=== PATIENT | male | born 1940 | race Caucasian/White ===

== ENCOUNTER → 2017-01-02 | Outpatient (CLI) | payer MEDICARE, OTHER ==
[~2017-01-02] MED LIST: DRON400T PO; FENO160T8 PO; FURO40TA OR; INSULIN LANTUS SUBCUT; MEGE40TA15 PO; METO5TAB56 PO; NOR10T PO; POTA8TAB2 OR; RAMI2.5C33 PO; SITA100T7 PO; [UNRECOGNIZED DRUG - OTHER] SUBCUT
[2017-01-02 16:32] LABS: Basophils # (auto) 0 uL; Basophils % (auto) 0.3 % (0.0-2.0); CONDITION Y; Eosinophils # (auto) 0.2 uL; Eosinophils % (auto) 1.5 % (0.0-7.0); Hematocrit 37.2 % (41.0-53.0); Hemoglobin 12.6 g/dL (13.5-17.5); Lymphocytes # (auto) 2.4 uL; Lymphocytes % (auto) 18.9 % (10.0-50.0); Mean Corpuscular Hemoglobin 30.6 pg (28.0-32.0); Mean Corpuscular Volume 90.1 fL (80.0-100.0); Mean Platelet Volume 8.8 fL (7.4-10.4); Monocytes # (auto) 0.6 uL; Monocytes % (auto) 4.8 % (0.0-12.0); Neutrophils # (auto) 9.3 uL; Neutrophils % (auto) 74.5 % (37.0-80.0); Platelet Count (auto) 265 10^3/uL (140-450); Red Cell Distribution Width 14.5 % (11.6-16.0); White Blood Cell 12.5 10^3/uL (4.4-10.8)
[2017-01-02 17:10] LABS: BUN/Creatinine Ratio 18.2; Calcium 9.2 mg/dL (8.5-10.1); Potassium 4.3 mmol/L (3.5-5.1)
== END | disposition home or self-care (01) ==
LOC: Rad HDHVI 14:49
PROVIDERS: ATTEND Internal Medicine Cardiovascular Disease
DX: I25.5 Ischemic cardiomyopathy (principal); D64.9 Anemia, unspecified; I10 Essential (primary) hypertension; E11.9 Type 2 diabetes mellitus without complications; I73.9 Peripheral vascular disease, unspecified
CPT/HCPCS: 36415; 80048; 83036; 85025; 93306

== ENCOUNTER → 2017-02-04 | Outpatient (CLI) | payer MEDICARE, OTHER ==
[~2017-02-04] VITALS: Ht 182.9 cm; Wt 86.2 kg
[~2017-02-04] MED LIST changes: +ATEN-60 PO; +ATO40T PO; +DEXL60CA3 PO; +DIGO0.1262 PO; +FURO40TA4 PO; +ISOS30TA4 PO; +LEVO100T8 PO; +LINA5TAB PO; +ONDA4TAB5 PO; +PIOG15TA46 PO; +POTA10TA51 PO; +SUCR1TAB PO; +TORS20TA20 PO
[2017-02-04 09:15] VITALS: BP 175/81
[2017-02-04 10:03] VITALS: BP 149/92
[2017-02-04 12:21] LABS: Basophils # (auto) 0 uL; Basophils % (auto) 0.3 % (0.0-2.0); CONDITION Y; Eosinophils # (auto) 0.3 uL; Eosinophils % (auto) 2.9 % (0.0-7.0); Hematocrit 38.8 % (41.0-53.0); Hemoglobin 13.1 g/dL (13.5-17.5); Lymphocytes % (auto) 22.3 % (10.0-50.0); Mean Corpuscular Hemoglobin 30.6 pg (28.0-32.0); Mean Corpuscular Hgb Conc. 33.9 g/dL (32.0-36.0); Mean Corpuscular Volume 90.2 fL (80.0-100.0); Mean Platelet Volume 8.2 fL (7.4-10.4); Monocytes # (auto) 0.5 uL; Monocytes % (auto) 5.5 % (0.0-12.0); Neutrophils # (auto) 6.2 uL; Platelet Count (auto) 300 10^3/uL (140-450); Red Cell Distribution Width 14.7 % (11.6-16.0); White Blood Cell 9.1 10^3/uL (4.4-10.8)
[2017-02-04 12:34] LABS: INR 0.95 (0.9-1.15); Partial Thromboplastin Time 26.8 sec (22.64-33.71); Prothrombin Time 10.3 sec (9.37-12.3)
[2017-02-04 12:54] LABS: BUN/Creatinine Ratio 18.6; Calcium 9.2 mg/dL (8.5-10.1); Potassium 4.5 mmol/L (3.5-5.1)
== END | disposition home or self-care (01) ==
LOC: CHF HDHVI 09:05
PROVIDERS: ATTEND Internal Medicine Cardiovascular Disease
DX: Z01.818 Encounter for other preprocedural examination (principal); I25.5 Ischemic cardiomyopathy; I25.10 Atherosclerotic heart disease of native coronary artery without angina pectoris; I10 Essential (primary) hypertension; R79.1 Abnormal coagulation profile; D64.9 Anemia, unspecified
CPT/HCPCS: 36415; 80048; 85025; 85610; 85730; 93005; G0463

== ENCOUNTER 2017-02-14 07:47 | Day surgery (SDC) | payer MEDICARE, OTHER ==
[~2017-02-14 07:47] MED LIST changes: -DRON400T PO; -FENO160T8 PO; -FURO40TA OR; -INSULIN LANTUS SUBCUT; -METO5TAB56 PO; -NOR10T PO; -PIOG15TA46 PO; -POTA8TAB2 OR; -RAMI2.5C33 PO; -SITA100T7 PO; -TORS20TA20 PO; -[UNRECOGNIZED DRUG - OTHER] SUBCUT
[2017-02-14] MEDS ORDERED: IOHEXOL 350 MG/ML 100ML IJ ONE (09:32)
[2017-02-14] MEDS ORDERED: LIDOCAINE 2%HCL (LOCAL ANESTH.) INJ 20ML MDV ONE ×2 (09:32→13:25)
[2017-02-14] MEDS ORDERED: ANGIOMAX 250 MG VIAL IV ONE (13:16)
[2017-02-14] MEDS ORDERED: SODIUM CHL 0.9% 0 ML ONE (13:17)
[2017-02-14] MEDS ORDERED: MIDAZOLAM HCL 1MG/1ML-2 ML VIAL ONE (13:17)
[2017-02-14] MEDS ORDERED: fentaNYL CITRATE 100 MCG/2 ML VL ONE (13:17)
[2017-02-14] MEDS ORDERED: SODIUM CHLORIDE 0.9% 1,000 ML IV SCH (14:01)
[2017-02-14] MEDS ORDERED: ACETAMINOPHEN 500 MG TAB PO PRN (14:15)
[2017-02-14] MEDS ORDERED: HYDROcodone-ACET 5/325MG TAB PO PRN (14:15)
== END 2017-02-14 16:10 | disposition home or self-care (01) ==
LOC: CATH 07:47
PROVIDERS: ATTEND Internal Medicine Cardiovascular Disease
DX: I25.10 Atherosclerotic heart disease of native coronary artery without angina pectoris (principal); I10 Essential (primary) hypertension; E78.5 Hyperlipidemia, unspecified; Z95.1 Presence of aortocoronary bypass graft; E11.9 Type 2 diabetes mellitus without complications; I50.9 Heart failure, unspecified; F41.9 Anxiety disorder, unspecified; F32.9 Major depressive disorder, single episode, unspecified; Z87.891 Personal history of nicotine dependence
CPT/HCPCS: 93458; C1760; C1894; J1644; J2250; J3010; J7030; Q9967

== ENCOUNTER → 2017-07-25 | Outpatient (CLI) | payer MEDICARE, OTHER ==
[~2017-07-25] VITALS: Ht 182.9 cm; Wt 86.2 kg
[~2017-07-25] MED LIST changes: +ADENOSINE 72 MG in GIVE UN-DILUTED 0 ML IV ONE; +ADENOSINE 90 MG/30 ML INJ IV ONE; +GABA100C9 PO; +INSDRIP SC; +INSLANTI SC; +METO25TA62 PO; +TORS5TAB8 PO
== END | disposition home or self-care (01) ==
LOC: Rad HDHVI 09:59
PROVIDERS: ATTEND Internal Medicine Cardiovascular Disease
DX: I11.0 Hypertensive heart disease with heart failure (principal); I50.23 Acute on chronic systolic (congestive) heart failure; I25.5 Ischemic cardiomyopathy; E83.52 Hypercalcemia; E11.9 Type 2 diabetes mellitus without complications; R19.7 Diarrhea, unspecified
CPT/HCPCS: 78452; 93005; 96374; 96375; A9500; J0153

== ENCOUNTER → 2017-08-28 | Outpatient (CLI) | payer MEDICARE, OTHER ==
[~2017-08-28] MED LIST changes: -ADENOSINE 72 MG in GIVE UN-DILUTED 0 ML IV ONE; -ADENOSINE 90 MG/30 ML INJ IV ONE
== END | disposition home or self-care (01) ==
LOC: Rad HDHVI 10:50
PROVIDERS: ATTEND Internal Medicine Cardiovascular Disease
DX: I07.1 Rheumatic tricuspid insufficiency (principal); E11.40 Type 2 diabetes mellitus with diabetic neuropathy, unspecified; I10 Essential (primary) hypertension; I70.201 Unspecified atherosclerosis of native arteries of extremities, right leg; E78.5 Hyperlipidemia, unspecified; Z95.1 Presence of aortocoronary bypass graft; Z89.512 Acquired absence of left leg below knee
CPT/HCPCS: 93306; 93926

== ENCOUNTER → 2017-09-24 | Outpatient (CLI) | payer MEDICARE, OTHER ==
[~2017-09-24] MED LIST changes: +CLOPIDOGREL 300 MG TAB ONE; +IODIXANOL 320MG/ML 100ML BTL IV ONE; +LIDOCAINE HCL 2 %PF INJ 10ML AMP IJ ONE; +SODIUM CHL 0.9% 50 ML ONE
[2017-09-24 09:10] VITALS: BP 155/46
[2017-09-24 09:44] VITALS: BP 143/51
[2017-09-24 11:55] LABS: Basophils # (auto) 0.1 uL; Basophils % (auto) 0.8 % (0.0-2.0); Eosinophils # (auto) 0.6 uL; Eosinophils % (auto) 6.8 % (0.0-7.0); Hematocrit 31.1 % (41.0-53.0); Hemoglobin 10.6 g/dL (13.5-17.5); Lymphocytes # (auto) 1.7 uL; Mean Corpuscular Hgb Conc. 34.2 g/dL (32.0-36.0); Mean Corpuscular Volume 87.5 fL (80.0-100.0); Monocytes # (auto) 0.6 uL; Monocytes % (auto) 7.3 % (0.0-12.0); Neutrophils # (auto) 5.6 uL; Neutrophils % (auto) 65.1 % (37.0-80.0); Nucleated Red Blood Cells % 0.1 %; Platelet Count (auto) 261 10^3/uL (140-450); Red Blood Cells 3.55 10^6/uL (4.5-5.90); Red Cell Distribution Width 15.6 % (11.8-14.3); White Blood Cell 8.7 10^3/uL (4.4-10.8)
[2017-09-24 12:01] LABS: INR 0.97 (0.9-1.15); Partial Thromboplastin Time 26.5 sec (22.64-33.71); Prothrombin Time 10.6 sec (9.37-12.3)
[2017-09-24 12:19] LABS: BUN/Creatinine Ratio 13.6; Calcium 8.3 mg/dL (8.5-10.1); Potassium 3.9 mmol/L (3.5-5.1)
== END | disposition home or self-care (01) ==
LOC: Rad HDHVI 09:00
PROVIDERS: ATTEND Internal Medicine Cardiovascular Disease
DX: Z01.818 Encounter for other preprocedural examination (principal); I70.0 Atherosclerosis of aorta; I10 Essential (primary) hypertension; D64.9 Anemia, unspecified; R79.1 Abnormal coagulation profile; E78.5 Hyperlipidemia, unspecified; Z95.5 Presence of coronary angioplasty implant and graft
CPT/HCPCS: 36415; 71046; 80048; 85025; 85610; 85730; 93005; G0463

== ENCOUNTER 2017-09-26 09:35 | Inpatient (IN) | payer MEDICARE, OTHER ==
[~2017-09-26] VITALS: Ht 182.9 cm; Wt 89.3 kg
[~2017-09-26 09:35] MED LIST changes: -CLOPIDOGREL 300 MG TAB ONE; -GABA100C9 PO; -INSDRIP SC; -INSLANTI SC; -IODIXANOL 320MG/ML 100ML BTL IV ONE; -LIDOCAINE HCL 2 %PF INJ 10ML AMP IJ ONE; -METO25TA62 PO; -SODIUM CHL 0.9% 50 ML ONE; -TORS5TAB8 PO
[2017-09-26] MEDS ORDERED: INSLANTI SC (10:13)
[2017-09-26] MEDS ORDERED: INSDRIP SC (10:13)
[2017-09-26] MEDS ORDERED: GABA100C9 PO (10:13)
[2017-09-26] MEDS ORDERED: METO25TA62 PO (10:13)
[2017-09-26] MEDS ORDERED: TORS5TAB8 PO (10:13)
[2017-09-26] MEDS ORDERED: ANGIOMAX 250 MG VIAL IV ONE ×2 (11:48→13:22)
[2017-09-26] MEDS ORDERED: fentaNYL CITRATE 100 MCG/2 ML VL ONE (11:48)
[2017-09-26] MEDS ORDERED: MIDAZOLAM HCL 1MG/1ML-2 ML VIAL ONE (11:49)
[2017-09-26] MEDS ORDERED: LIDOCAINE HCL 2 %PF INJ 10ML AMP IJ ONE (12:06)
[2017-09-26] MEDS ORDERED: SODIUM CHL 0.9% 50 ML ONE (13:22)
[2017-09-26] MEDS ORDERED: ASPirin 325 MG TAB ONE ×2 (13:53→14:00)
[2017-09-26] MEDS ORDERED: NITROGLYCERIN 0.4 MG SL TAB SL PRN (14:15)
[2017-09-26] MEDS ORDERED: MORPHINE SULFATE 4 MG/ML SYR/VIAL IV PRN (14:15)
[2017-09-26] MEDS ORDERED: CLOPIDOGREL 300 MG TAB PO ONE (14:15)
[2017-09-26] MEDS ORDERED: DEXTROSE (50%) 50ML SYRG IV PRN (14:30)
[2017-09-26] MEDS ORDERED: ACETAMINOPHEN 500 MG TAB PO PRN (15:15)
[2017-09-26] MEDS ORDERED: ONDANSETRON HCL 4 MG/2 ML VIAL IV PRN (15:15)
[2017-09-26] MEDS: POTASSIUM CHL 10 Meq TABLET PO SCH (15:20)
[2017-09-26] MEDS: ISOSORBIDE MONONITRATE 60 MG TAB PO SCH (15:20)
[2017-09-26] MEDS ORDERED: HYDROcodone-ACET 5/325MG TAB ONE (15:21)
[2017-09-26] MEDS: InsuLIN REG 1unit/0.01ml Soln (100units/ml) SC SCH (15:23)
[2017-09-26] MEDS: ACCU-CHEK COMFORT CURVE STRIP VI SCH ×2 (15:24→22:00)
[2017-09-26] MEDS: HYDROcodone-ACET 5/325MG TAB PO PRN ×2 (15:28→21:53)
[2017-09-26 19:10] VITALS: BP 160/69
[2017-09-26] MEDS ORDERED: TEMAZEPAM 15 MG CAP PO ONE (20:00)
[2017-09-26] MEDS: GABAPENTIN 100 MG CAP PO SCH (21:54)
[2017-09-26 22:00] VITALS: BP 150/63
[2017-09-26] MEDS: TORSEMIDE PO SCH (22:00)
[2017-09-26] MEDS ORDERED: INSULIN LANTUS (GLARGINE) 1 /0.01ml (100units/ml) SC SCH ×2 (22:00)
[2017-09-26] MEDS ORDERED: InsuLIN REG 1unit/0.01ml Soln (100units/ml) SC SCH (22:00)
[2017-09-26] MEDS ORDERED: ATORVASTATIN 20 MG TAB PO SCH (22:00)
[2017-09-27 05:04] VITALS: BP 142/66
[2017-09-27] MEDS: GABAPENTIN 100 MG CAP PO SCH ×2 (05:28→14:19)
[2017-09-27] MEDS: InsuLIN REG 1unit/0.01ml Soln (100units/ml) SC SCH ×3 (06:55→17:30)
[2017-09-27] MEDS: ACCU-CHEK COMFORT CURVE STRIP VI SCH ×3 (06:55→17:29)
[2017-09-27] MEDS ORDERED: LEVOTHYROXINE SODIUM 100 MCG TAB PO SCH (07:00)
[2017-09-27 08:00] VITALS: BP 145/59
[2017-09-27 09:00] VITALS: BP 145/59
[2017-09-27] MEDS: ISOSORBIDE MONONITRATE 60 MG TAB PO SCH (09:20)
[2017-09-27] MEDS: POTASSIUM CHL 10 Meq TABLET PO SCH (09:21)
[2017-09-27] MEDS ORDERED: CLOPIDOGREL BISULFATE 75 MG TAB PO SCH (10:00)
[2017-09-27] MEDS ORDERED: DIGOXIN 0.125 MG TAB PO SCH (10:00)
[2017-09-27] MEDS ORDERED: METOPROLOL SUCCINATE XL 50 MG TAB PO SCH (10:00)
[2017-09-27] MEDS: TORSEMIDE PO SCH (10:00)
[2017-09-27 13:00] VITALS: BP 145/61
[2017-09-27 17:00] VITALS: BP 148/71
[2017-09-27 18:13] VITALS: BP 145/59
== END 2017-09-27 19:10 | disposition home or self-care (01) | DRG 271 ==
LOC: CATH 09:35 → WEST WING 09:36
PROVIDERS: ADMIT Internal Medicine Cardiovascular Disease; ATTEND Internal Medicine Cardiovascular Disease
PROC: B41G1ZZ Fluoroscopy of Left Lower Extremity Arteries using Low Osmolar Contrast (ICD-10-PCS; principal; 2017-09-26)
PROC: 04CP3ZZ Extirpation of Matter from Right Anterior Tibial Artery, Percutaneous Approach (ICD-10-PCS; 2017-09-26)
PROC: 047P3ZZ Dilation of Right Anterior Tibial Artery, Percutaneous Approach (ICD-10-PCS; 2017-09-26)
PROC: B41F1ZZ Fluoroscopy of Right Lower Extremity Arteries using Low Osmolar Contrast (ICD-10-PCS; 2017-09-26)
DX: E11.51 Type 2 diabetes mellitus with diabetic peripheral angiopathy without gangrene (principal); L97.909 Non-pressure chronic ulcer of unspecified part of unspecified lower leg with unspecified severity; E11.21 Type 2 diabetes mellitus with diabetic nephropathy; N19 Unspecified kidney failure; E11.40 Type 2 diabetes mellitus with diabetic neuropathy, unspecified; L97.818 Non-pressure chronic ulcer of other part of right lower leg with other specified severity; I74.3 Embolism and thrombosis of arteries of the lower extremities; E11.59 Type 2 diabetes mellitus with other circulatory complications; I10 Essential (primary) hypertension; I25.10 Atherosclerotic heart disease of native coronary artery without angina pectoris; Z89.512 Acquired absence of left leg below knee; Z95.1 Presence of aortocoronary bypass graft
CPT/HCPCS: 36415; 37229; 71046; 75716; 80048; 82962; 85025; 85610; 85730; 87081; 93005; 99152; C1769; G0463; J1815; J2250; Q9967

== ENCOUNTER → 2017-12-24 | Outpatient (CLI) | payer MEDICARE, BC ==
[~2017-12-24] MED LIST changes: -FURO40TA4 PO; +GABA100C9 PO; +INSDRIP SC; +INSLANTI SC; -LINA5TAB PO; -MEGE40TA15 PO; +METO25TA62 PO; -ONDA4TAB5 PO; -SUCR1TAB PO; +TORS5TAB8 PO
== END | disposition home or self-care (01) ==
LOC: Rad HDHVI 10:41
PROVIDERS: ATTEND Internal Medicine Cardiovascular Disease
DX: I25.10 Atherosclerotic heart disease of native coronary artery without angina pectoris (principal); I13.0 Hypertensive heart and chronic kidney disease with heart failure and stage 1 through stage 4 chronic kidney disease, or unspecified chronic kidney disease; E11.22 Type 2 diabetes mellitus with diabetic chronic kidney disease; E11.21 Type 2 diabetes mellitus with diabetic nephropathy; I50.23 Acute on chronic systolic (congestive) heart failure; N18.4 Chronic kidney disease, stage 4 (severe); E78.5 Hyperlipidemia, unspecified; F41.9 Anxiety disorder, unspecified; F32.9 Major depressive disorder, single episode, unspecified; E78.00 Pure hypercholesterolemia, unspecified; Z79.4 Long term (current) use of insulin
CPT/HCPCS: 93926

== ENCOUNTER 2018-01-20 21:15 | Inpatient (IN) | payer MEDICARE, BC, MEDICAID ==
[~2018-01-20] VITALS: Ht 182.9 cm; Wt 87.5 kg
[2018-01-21] MEDS ORDERED: BENA40TA7 PO (02:10)
[2018-01-21] MEDS ORDERED: ATO40T PO (02:10)
[2018-01-21] MEDS ORDERED: AMLO5TAB2 PO (02:10)
[2018-01-21] MEDS ORDERED: DEXL60CA3 PO (04:53)
[2018-01-21] MEDS ORDERED: GABA100C9 PO (04:53)
[2018-01-21] MEDS ORDERED: FURO40TA4 PO (04:53)
[2018-01-21] MEDS ORDERED: MAGN400T5 OR (04:53)
[2018-01-21] MEDS ORDERED: CLOP75TA41 PO (04:53)
[2018-01-21] MEDS ORDERED: FEXO-38 PO (04:53)
[2018-01-21] MEDS ORDERED: CITA-73 PO (04:53)
[2018-01-21] MEDS ORDERED: CARV3.1240 PO (04:53)
[2018-01-21] MEDS ORDERED: LEVO100T8 PO (04:53)
[2018-01-21] MEDS ORDERED: [UNRECOGNIZED DRUG - CODE] IV (04:53)
[2018-01-21] MEDS ORDERED: ISOS30TA4 PO (04:53)
[2018-01-21 05:00] VITALS: BP 132/61
[2018-01-21] MEDS ORDERED: NITROGLYCERIN 0.4 MG SL TAB SL PRN ×2 (06:30→07:00)
[2018-01-21] MEDS ORDERED: MORPHINE SULF INJ 2 MG/ML SYRINGE 1ML IV PRN ×2 (06:30→07:00)
[2018-01-21] MEDS ORDERED: POTA10TA51 PO (06:53)
[2018-01-21] MEDS ORDERED: DEXTROSE (50%) 50ML SYRG IV PRN (07:00)
[2018-01-21] MEDS: ACCU-CHEK COMFORT CURVE STRIP VI SCH ×4 (07:00→22:18)
[2018-01-21] MEDS: InsuLIN REG 1unit/0.01ml Soln (100units/ml) SC SCH ×4 (07:00→22:29)
[2018-01-21] MEDS ORDERED: MAGN1TAB29 PO (07:21)
[2018-01-21 08:51] VITALS: BP 116/42
[2018-01-21 08:57] LABS: Basophils # (auto) 0.1 uL; Basophils % (auto) 0.8 % (0.0-2.0); Eosinophils # (auto) 0.3 uL; Eosinophils % (auto) 3.1 % (0.0-7.0); Hematocrit 31.1 % (41.0-53.0); Hemoglobin 10.2 g/dL (13.5-17.5); Lymphocytes # (auto) 2.1 uL; Lymphocytes % (auto) 22.1 % (10.0-50.0); Mean Corpuscular Hemoglobin 27.7 pg (28.0-32.0); Mean Corpuscular Hgb Conc. 32.9 g/dL (32.0-36.0); Mean Corpuscular Volume 84.1 fL (80.0-100.0); Monocytes # (auto) 0.7 uL; Monocytes % (auto) 7.1 % (0.0-12.0); Neutrophils # (auto) 6.4 uL; Neutrophils % (auto) 66.9 % (37.0-80.0); Nucleated Red Blood Cells % 0.1 %; Platelet Count (auto) 228 10^3/uL (140-450); Red Blood Cells 3.69 10^6/uL (4.5-5.90); Red Cell Distribution Width 16.7 % (11.8-14.3); White Blood Cell 9.6 10^3/uL (4.4-10.8)
[2018-01-21 09:14] LABS: Albumin 2.9 g/dL (3.4-5.0); BUN/Creatinine Ratio 14.8; Calcium 7.5 mg/dL (8.5-10.1); Potassium 3.2 mmol/L (3.5-5.1)
[2018-01-21 09:16] LABS: Bilirubin, Total 0.5 mg/dL (0.2-1.0); Total Protein 6.1 g/dL (6.4-8.2)
[2018-01-21] MEDS ORDERED: PATIENTS OWN MEDICATION PO SCH (10:00)
[2018-01-21] MEDS: CITALOPRAM HYDROBR 20 MG TAB PO SCH (10:42)
[2018-01-21] MEDS: FEXOFENADINE HCL 60 MG TAB PO SCH ×2 (10:42→22:17)
[2018-01-21] MEDS: POTASSIUM CHL 10 Meq TABLET PO SCH (10:43)
[2018-01-21] MEDS: ISOSORBIDE MONONITRATE 60 MG TAB PO SCH (10:43)
[2018-01-21] MEDS: FUROSEMIDE 40 MG TAB PO SCH (10:44)
[2018-01-21] MEDS: MAGNESIUM OXIDE 400 MG TAB PO SCH (10:46)
[2018-01-21] MEDS: amLODIPine BESYLATE 5 MG TAB PO SCH (10:47)
[2018-01-21] MEDS: PANTOPRAZOLE 40 MG TAB PO SCH (10:48)
[2018-01-21] MEDS: BENAZEPRIL HCL 10 MG TAB PO SCH (10:49)
[2018-01-21 13:00] VITALS: BP 109/45
[2018-01-21] MEDS: GABAPENTIN 100 MG CAP PO SCH ×2 (14:32→22:18)
[2018-01-21] MEDS ORDERED: SODIUM CHLORIDE 0.9% 500 ML IV ONE (16:45)
[2018-01-21 17:00] VITALS: BP 116/48
[2018-01-21 17:53] LABS: Prothrombin Time 10.7 sec (9.27-12.13)
[2018-01-21 22:00] VITALS: BP 104/48
[2018-01-21] MEDS: ATORVASTATIN 20 MG TAB PO SCH (22:17)
[2018-01-22 02:00] VITALS: BP 106/45
[2018-01-22 05:00] VITALS: BP 106/45
[2018-01-22 05:43] LABS: Basophils # (auto) 0.1 uL; Basophils % (auto) 0.6 % (0.0-2.0); Eosinophils # (auto) 0.3 uL; Hematocrit 27.7 % (41.0-53.0); Hemoglobin 9.4 g/dL (13.5-17.5); Lymphocytes # (auto) 2.5 uL; Lymphocytes % (auto) 25.9 % (10.0-50.0); Mean Corpuscular Hemoglobin 28.4 pg (28.0-32.0); Mean Corpuscular Hgb Conc. 33.9 g/dL (32.0-36.0); Mean Corpuscular Volume 83.6 fL (80.0-100.0); Monocytes # (auto) 0.7 uL; Monocytes % (auto) 7.4 % (0.0-12.0); Neutrophils # (auto) 6.1 uL; Neutrophils % (auto) 63.1 % (37.0-80.0); Platelet Count (auto) 250 10^3/uL (140-450); Red Blood Cells 3.31 10^6/uL (4.5-5.90); Red Cell Distribution Width 16.5 % (11.8-14.3); White Blood Cell 9.6 10^3/uL (4.4-10.8)
[2018-01-22 05:53] LABS: BUN/Creatinine Ratio 14.4; Calcium 7.7 mg/dL (8.5-10.1); Potassium 3.4 mmol/L (3.5-5.1)
[2018-01-22] MEDS: LEVOTHYROXINE SODIUM 100 MCG TAB PO SCH (06:37)
[2018-01-22] MEDS: GABAPENTIN 100 MG CAP PO SCH ×3 (06:37→21:30)
[2018-01-22] MEDS: ACCU-CHEK COMFORT CURVE STRIP VI SCH ×4 (06:38→21:30)
[2018-01-22] MEDS: InsuLIN REG 1unit/0.01ml Soln (100units/ml) SC SCH ×4 (06:38→21:30)
[2018-01-22 09:00] VITALS: BP 112/45
[2018-01-22] MEDS: FEXOFENADINE HCL 60 MG TAB PO SCH ×2 (10:02→21:30)
[2018-01-22] MEDS: POTASSIUM CHL 10 Meq TABLET PO SCH (10:03)
[2018-01-22] MEDS: MAGNESIUM OXIDE 400 MG TAB PO SCH (10:03)
[2018-01-22] MEDS: PANTOPRAZOLE 40 MG TAB PO SCH (10:03)
[2018-01-22] MEDS: CITALOPRAM HYDROBR 20 MG TAB PO SCH (10:03)
[2018-01-22] MEDS: ISOSORBIDE MONONITRATE 60 MG TAB PO SCH (10:04)
[2018-01-22] MEDS: FUROSEMIDE 40 MG TAB PO SCH (10:05)
[2018-01-22] MEDS: amLODIPine BESYLATE 5 MG TAB PO SCH (10:06)
[2018-01-22] MEDS: BENAZEPRIL HCL 10 MG TAB PO SCH (10:11)
[2018-01-22 12:54] VITALS: BP 112/54
[2018-01-22 17:00] VITALS: BP 112/54
[2018-01-22 21:30] VITALS: BP 102/45
[2018-01-22] MEDS: ATORVASTATIN 20 MG TAB PO SCH (21:30)
[2018-01-23 05:00] VITALS: BP 128/58
[2018-01-23] MEDS: GABAPENTIN 100 MG CAP PO SCH ×3 (06:13→21:35)
[2018-01-23] MEDS: ACCU-CHEK COMFORT CURVE STRIP VI SCH ×4 (06:13→21:35)
[2018-01-23] MEDS: LEVOTHYROXINE SODIUM 100 MCG TAB PO SCH (06:13)
[2018-01-23] MEDS: InsuLIN REG 1unit/0.01ml Soln (100units/ml) SC SCH ×4 (06:21→21:35)
[2018-01-23 08:54] VITALS: BP 126/67
[2018-01-23] MEDS ORDERED: LIDOCAINE 2% (LOCAL ANESTH.) PF 5ml SDV ONE (09:44)
[2018-01-23] MEDS ORDERED: fentaNYL CITRATE 100 MCG/2 ML VL ONE (09:56)
[2018-01-23] MEDS ORDERED: MIDAZOLAM HCL 1MG/1ML-2 ML VIAL ONE (09:56)
[2018-01-23] MEDS ORDERED: ceFAZolin 1GM/50ML 50 ML IV ONE (09:57)
[2018-01-23] MEDS: PANTOPRAZOLE 40 MG TAB PO SCH (10:00)
[2018-01-23] MEDS: BENAZEPRIL HCL 10 MG TAB PO SCH (10:00)
[2018-01-23] MEDS: CITALOPRAM HYDROBR 20 MG TAB PO SCH (10:00)
[2018-01-23] MEDS: FUROSEMIDE 40 MG TAB PO SCH (10:00)
[2018-01-23] MEDS: amLODIPine BESYLATE 5 MG TAB PO SCH (10:00)
[2018-01-23] MEDS: ISOSORBIDE MONONITRATE 60 MG TAB PO SCH (10:00)
[2018-01-23] MEDS: FEXOFENADINE HCL 60 MG TAB PO SCH ×2 (10:00→21:35)
[2018-01-23] MEDS: POTASSIUM CHL 10 Meq TABLET PO SCH (10:00)
[2018-01-23] MEDS: MAGNESIUM OXIDE 400 MG TAB PO SCH (10:00)
[2018-01-23] MEDS ORDERED: VANCOMYCIN HCL 1000 MG VL ONE (10:01)
[2018-01-23] MEDS ORDERED: FUROSEMIDE 20 MG/2 ML VIAL ONE (10:17)
[2018-01-23] MEDS ORDERED: VANCOMYCIN 1GM/250ML 250 ML IV ONE (10:27)
[2018-01-23 17:25] VITALS: BP 138/71
[2018-01-23] MEDS: VANCOMYCIN 1GM/250ML 250 ML IV SCH (21:35)
[2018-01-23] MEDS: ATORVASTATIN 20 MG TAB PO SCH (21:35)
[2018-01-23 21:52] VITALS: BP 126/54
[2018-01-24] VITALS (7 sets, daily range): BP systolic 71–105; BP diastolic 36–61
[2018-01-24] MEDS: GABAPENTIN 100 MG CAP PO SCH ×3 (06:27→23:47)
[2018-01-24] MEDS: InsuLIN REG 1unit/0.01ml Soln (100units/ml) SC SCH ×4 (06:28→23:47)
[2018-01-24] MEDS: ACCU-CHEK COMFORT CURVE STRIP VI SCH ×4 (06:28→22:00)
[2018-01-24] MEDS: LEVOTHYROXINE SODIUM 100 MCG TAB PO SCH (06:28)
[2018-01-24] MEDS: FUROSEMIDE 40 MG TAB PO SCH (10:00)
[2018-01-24] MEDS: BENAZEPRIL HCL 10 MG TAB PO SCH (10:00)
[2018-01-24] MEDS: VANCOMYCIN 1GM/250ML 250 ML IV SCH (10:01)
[2018-01-24] MEDS: CITALOPRAM HYDROBR 20 MG TAB PO SCH (10:02)
[2018-01-24] MEDS: POTASSIUM CHL 10 Meq TABLET PO SCH (10:03)
[2018-01-24] MEDS: ISOSORBIDE MONONITRATE 60 MG TAB PO SCH (10:03)
[2018-01-24] MEDS: MAGNESIUM OXIDE 400 MG TAB PO SCH (10:04)
[2018-01-24] MEDS: PANTOPRAZOLE 40 MG TAB PO SCH (10:05)
[2018-01-24] MEDS: amLODIPine BESYLATE 5 MG TAB PO SCH (10:05)
[2018-01-24] MEDS: FEXOFENADINE HCL 60 MG TAB PO SCH ×2 (10:06→23:46)
[2018-01-24] MEDS ORDERED: SODIUM CHLORIDE 0.9% 500 ML IV ONE ×2 (13:45→17:00)
[2018-01-24] MEDS: ATORVASTATIN 20 MG TAB PO SCH (23:47)
[2018-01-25 04:36] VITALS: BP 119/58
[2018-01-25] MEDS: GABAPENTIN 100 MG CAP PO SCH ×3 (06:57→22:47)
[2018-01-25] MEDS: LEVOTHYROXINE SODIUM 100 MCG TAB PO SCH (06:57)
[2018-01-25] MEDS: InsuLIN REG 1unit/0.01ml Soln (100units/ml) SC SCH ×4 (07:00→23:07)
[2018-01-25] MEDS: ACCU-CHEK COMFORT CURVE STRIP VI SCH ×4 (07:22→22:48)
[2018-01-25 08:52] VITALS: BP 118/51
[2018-01-25] MEDS: POTASSIUM CHL 10 Meq TABLET PO SCH (10:00)
[2018-01-25] MEDS: FEXOFENADINE HCL 60 MG TAB PO SCH ×2 (10:00→22:47)
[2018-01-25] MEDS: ISOSORBIDE MONONITRATE 60 MG TAB PO SCH (10:00)
[2018-01-25] MEDS: CITALOPRAM HYDROBR 20 MG TAB PO SCH (10:00)
[2018-01-25] MEDS: FUROSEMIDE 40 MG TAB PO SCH (10:00)
[2018-01-25] MEDS: BENAZEPRIL HCL 10 MG TAB PO SCH (10:00)
[2018-01-25] MEDS: PANTOPRAZOLE 40 MG TAB PO SCH (10:00)
[2018-01-25] MEDS: MAGNESIUM OXIDE 400 MG TAB PO SCH (10:00)
[2018-01-25] MEDS: amLODIPine BESYLATE 5 MG TAB PO SCH (10:00)
[2018-01-25 13:35] VITALS: BP 125/63
[2018-01-25 17:16] VITALS: BP 125/56
[2018-01-25 22:00] VITALS: BP 124/51
[2018-01-25] MEDS: ATORVASTATIN 20 MG TAB PO SCH (22:47)
[2018-01-26 05:00] VITALS: BP 128/49
[2018-01-26] MEDS: GABAPENTIN 100 MG CAP PO SCH ×3 (05:56→22:12)
[2018-01-26] MEDS: ACCU-CHEK COMFORT CURVE STRIP VI SCH ×4 (06:37→21:47)
[2018-01-26] MEDS: InsuLIN REG 1unit/0.01ml Soln (100units/ml) SC SCH ×4 (06:38→22:13)
[2018-01-26] MEDS: LEVOTHYROXINE SODIUM 100 MCG TAB PO SCH (06:54)
[2018-01-26 09:15] VITALS: BP 124/57
[2018-01-26] MEDS: POTASSIUM CHL 10 Meq TABLET PO SCH (09:35)
[2018-01-26] MEDS: CITALOPRAM HYDROBR 20 MG TAB PO SCH (09:35)
[2018-01-26] MEDS: MAGNESIUM OXIDE 400 MG TAB PO SCH (09:35)
[2018-01-26] MEDS: FEXOFENADINE HCL 60 MG TAB PO SCH ×2 (09:35→22:12)
[2018-01-26] MEDS: PANTOPRAZOLE 40 MG TAB PO SCH (09:35)
[2018-01-26] MEDS: LACTULOSE 20Gm/30ML SOLN PO PRN ×2 (13:00→18:25)
[2018-01-26 13:07] VITALS: BP 130/68
[2018-01-26 17:29] VITALS: BP 129/62
[2018-01-26 22:00] VITALS: BP 138/56
[2018-01-26] MEDS: ATORVASTATIN 20 MG TAB PO SCH (22:12)
[2018-01-27 05:00] VITALS: BP 132/53
[2018-01-27] MEDS: GABAPENTIN 100 MG CAP PO SCH ×2 (05:49→14:00)
[2018-01-27] MEDS: InsuLIN REG 1unit/0.01ml Soln (100units/ml) SC SCH ×2 (06:51→17:00)
[2018-01-27] MEDS: LEVOTHYROXINE SODIUM 100 MCG TAB PO SCH (06:51)
[2018-01-27] MEDS: ACCU-CHEK COMFORT CURVE STRIP VI SCH ×2 (06:52→17:00)
[2018-01-27 08:00] VITALS: BP 137/67
[2018-01-27] MEDS: MAGNESIUM OXIDE 400 MG TAB PO SCH (10:00)
[2018-01-27] MEDS: PANTOPRAZOLE 40 MG TAB PO SCH (10:00)
[2018-01-27] MEDS: CITALOPRAM HYDROBR 20 MG TAB PO SCH (10:00)
[2018-01-27] MEDS: FEXOFENADINE HCL 60 MG TAB PO SCH (10:00)
[2018-01-27] MEDS: POTASSIUM CHL 10 Meq TABLET PO SCH (10:00)
[2018-01-27 10:01] VITALS: BP 121/63
[2018-01-27 13:00] VITALS: BP 132/66
[2018-01-27 16:43] VITALS: BP 128/54
[2018-01-27 20:11] VITALS: BP 125/63
== END 2018-01-27 20:50 | disposition home health service (06) | DRG 242 ==
LOC: MERGE 01-21 01:19 → TELE-CENTR 01-21 01:19
PROVIDERS: ADMIT Internal Medicine Cardiovascular Disease; ATTEND Internal Medicine Cardiovascular Disease
PROC: 0JH606Z Insertion of Pacemaker, Dual Chamber into Chest Subcutaneous Tissue and Fascia, Open Approach (ICD-10-PCS; principal; 2018-01-23)
PROC: 02H63JZ Insertion of Pacemaker Lead into Right Atrium, Percutaneous Approach (ICD-10-PCS; 2018-01-23)
PROC: 02HK3JZ Insertion of Pacemaker Lead into Right Ventricle, Percutaneous Approach (ICD-10-PCS; 2018-01-23)
DX: I49.5 Sick sinus syndrome (principal); I50.21 Acute systolic (congestive) heart failure; E44.0 Moderate protein-calorie malnutrition; E87.6 Hypokalemia; R55 Syncope and collapse; I11.0 Hypertensive heart disease with heart failure; I25.10 Atherosclerotic heart disease of native coronary artery without angina pectoris; E11.9 Type 2 diabetes mellitus without complications; I73.9 Peripheral vascular disease, unspecified; N28.9 Disorder of kidney and ureter, unspecified; I25.5 Ischemic cardiomyopathy; Z95.1 Presence of aortocoronary bypass graft; Z68.26 Body mass index [BMI] 26.0-26.9, adult
CPT/HCPCS: 33208; 36415; 71045; 80048; 80053; 82962; 85025; 85610; 86850; 86900; 86901; 87081; 93005; 99152; C1785; J0690; J1815; J2001; J2250